=== PATIENT | female | born 1935 | race Caucasian/White ===

== ENCOUNTER → 2016-12-03 | Outpatient (CLI) | payer MEDICARE ==
[2016-12-03 10:51] LABS: Blood Urea Nitrogen 18 mg/dL (7-17); Non-African American GFR(MDRD) 59 (>60 ml/min/1.73 sqM)
--- NOTE | 2016-12-03 11:37 | CT ---
EXAMINATION TYPE: CT abdomen pelvis w con DATE OF EXAM: 12/03/2016 11:19 AM HISTORY: Abdominal and pelvic mass. Anemia. CT DLP: 811.50mGycm Automated Exposure Control for Dose Reduction was Utilized. CONTRAST: CT scan of the abdomen and pelvis is performed with IV Contrast, patient injected with 100 ml mL of V isipaque 320. COMPARISON: None. FINDINGS: LUNG BASES: Minimal left basilar subsegmental atelectasis. LIVER/GB: Solitary hypoattenuated lesion is seen within the right lobe of the liver on image 24 that is fluid attenuated and likely represents a hepatic cyst. This measures 1.0 cm. The gallbladder is un remarkable with no right upper quadrant fat stranding, free fluid, or evidence of gallbladder wall th ickening. PANCREAS: No significant abnormality is seen. SPLEEN: No significant abnormality is seen. ADRENALS: No significant abnormality is seen. KIDNEYS: Nonspecific bilateral perinephric fat stranding is present. A nonobstructive 3 mm left lower pole renal calculus is seen as well as scattered renal lesions that are too small to accurately ailyn acterize bilaterally. Additionally a 3 mm right lower pole nonobstructing calculus is seen and a slig htly hyperdense left upper pole renal lesion measuring 9 mm that is also too small to accurately ailyn acterize. Right parapelvic renal cyst is noted. BOWEL: There is a small hiatal hernia present. Sigmoid diverticula are seen without pericolonic fat s tranding. Rectum is decompressed. UTERUS/ADNEXA: The uterus is atrophic containing a single peripheral calcification versus adjacent ph lebolith. The ovaries are also atrophic with no adnexal masses seen. LYMPH NODES: No greater than 1cm abdominal or pelvic lymph nodes are appreciated. OSSEOUS STRUCTURES: No suspicious abnormality is seen. Degenerative changes are present of the femora l acetabular joints and visualized thoracolumbar and lumbosacral spine. Multilevel degenerative disc disease is evident. Diastasis recti with a small fat filled umbilical hernia is also seen. OTHER: Moderate atheromatous changes are seen of the abdominal aorta and its branches. Abdominal aort a is of normal course and caliber. IMPRESSION: 1. No pelvic mass. Atrophy of the uterus and ovaries, age-related. 2. Sigmoid diverticulosis without current evidence of diverticulitis. 3. Bilateral hypoattenuating renal lesions that are too small to accurately characterize and right pa rapelvic cyst. 4. Nonobstructing 3 mm renal calculi, one within each kidney. 5. Simple hepatic cyst. 6. Small hiatal hernia. 7. Multilevel degenerative disc disease and degenerative changes of the thoracolumbar spine.
== END | disposition home or self-care (01) ==
LOC: RADCTMAIN 09:44
PROVIDERS: ATTEND Surgery Plastic and Reconstructive Surgery
DX: N20.0 Calculus of kidney (principal); K57.30 Diverticulosis of large intestine without perforation or abscess without bleeding; N28.9 Disorder of kidney and ureter, unspecified; N28.1 Cyst of kidney, acquired; K76.89 Other specified diseases of liver; K44.9 Diaphragmatic hernia without obstruction or gangrene; N85.8 Other specified noninflammatory disorders of uterus
CPT/HCPCS: 82565; 84520; 74177; 36415; Q9967

== ENCOUNTER → 2016-12-03 | Day surgery (SDC) | payer MEDICARE ==
[2016-12-01 13:23] VITALS: BMI 29.5
[~2016-12-03] MED LIST: LACTATED RINGERS 1,000 ML IV ONE; LACTATED RINGERS 1,000 ML IV SCH; PROPOFOL 10 MG/ML 20 ML VIAL IV ONE
--- NOTE | 2016-12-03 04:34 | P.GSHP ---
History of Present Illness H&P Date: 12/03/16 CHIEF COMPLAINT: GERD and colon screen HISTORY OF PRESENT ILLNESS: The patient is a 81-year-old male who presents reports gastroesophageal reflux disease and need for colon screen. Upper and lower endoscopy were offered for further evaluation and management. PAST MEDICAL HISTORY: Please see list. PAST SURGICAL HISTORY: Please see list. MEDICATIONS: Please see list. ALLERGIES: Please see list. SOCIAL HISTORY: No illicit drug use FAMILY HISTORY: No reports of Crohn disease or ulcerative colitis. REVIEW OF ORGAN SYSTEMS: CONSTITUTIONAL: No reports of fevers or chills. GI: Denies any blood in stools or constipation. PHYSICAL EXAM: VITAL SIGNS: Stable GENERAL: Well-developed pleasant in no acute distress. HEENT: No scleral icterus. Extraocular movements grossly intact. Moist buccal mucosa. NECK: Supple without lymphadenopathy. CHEST: Unlabored respirations. Equal bilateral excursions. CARDIOVASCULAR: Regular rate and rhythm. Distal 2+ pulses. ABDOMEN: Soft, nondistended. MUSCULOSKELETAL: No clubbing, cyanosis, or edema. ASSESSMENT: 1. Gastroesophageal reflux disease 2. Colon screen. PLAN: 1. Recommend proceeding with an upper and lower endoscopy Past Medical History Past Medical History: Heart Failure, Eye Disorder, GERD/Reflux, Hypertension Additional Past Medical History / Comment(s): hx. intermittent anemia-gets iron infusions, blood transfusion in Sep., now low again, hx. heart murmur, sciatic problems, macular degeneration History of Any Multi-Drug Resistant Organisms: None Reported Past Surgical History: Orthopedic Surgery Additional Past Surgical History / Comment(s): bunionectomy,colonoscopy Past Anesthesia/Blood Transfusion Reactions: No Reported Reaction Smoking Status: Former smoker Past Alcohol Use History: None Reported Additional Past Alcohol Use History / Comment(s): quit smoking 27 yrs. ago, < ppd since teens Past Drug Use History: None Reported - Past Family History Mother Family Medical History: No Reported History Medications and Allergies Home Medications Medication Instructions Recorded Confirmed Type Furosemide [Lasix] 40 mg PO DAILY 12/01/16 12/01/16 History Irbesartan/Hydrochlorothiazide 2 each PO DAILY 12/01/16 12/01/16 History [Avalide 150-12.5 mg Tablet] Multivit with Calcium,Iron,Min 1 each PO DAILY 12/01/16 12/01/16 History [Women's Multivitamin] Vit C/E/Zn/Coppr/Lutein/Zeaxan 1 each PO DAILY 12/01/16 12/01/16 History [Preservision Areds 2 Softgel] Allergies Allergy/AdvReac Type Severity Reaction Status Date / Time Penicillins Allergy Rash/Hives Verified 12/01/16 12:58
[2016-12-03 07:08] VITALS: TEMP 97.1
--- NOTE | 2016-12-03 07:55 | P.PCN ---
Date of Procedure: 12/03/16 Description of Procedure: PREOPERATIVE DIAGNOSIS: Chronic anemia. Gastroesophageal reflux disease. POSTOPERATIVE DIAGNOSIS: Chronic gastritis without stigmata of prior bleed Diaphragmatic hiatal hernia. Gastroesophageal reflux disease. OPERATION: Esophagogastroduodenoscopy with biopsies along antrum. SURGEON: Alexandra Cruz MD ANESTHESIA: MAC. INDICATIONS: The patient is a 81-year-old female who presents with a history of anemia and reflux disease. Benefits and risks of the procedure were described. Informed consent was obtained. DESCRIPTION: The patient was brought into the endoscopy suite and laid in the left lateral decubitus position. An Olympus gastroscope was passed along the posterior oropharynx down to the distal esophagus where the squamocolumnar junction was encountered at 37 cm from the incisors. The stomach was entered and minimal bile reflux was found. Additional findings are listed below. Biopsies with cold forceps were obtained of the antrum. The first through third portion of the duodenum was examined and unremarkable. Retroflexion of the scope confirmed Hill grade 4 lower esophageal valve. The squamocolumnar junction demostrated LA grade B erosive esophagitis. The stomach was desufflated. The patient tolerated the procedure well. FINDINGS: Squamocolumnar junction 37 cm from the incisors. Diaphragmatic hiatus 40 cm from the incisors. Hiatal hernia, 3 cm. Hill grade 4 lower esophageal valve. LA grade B erosive esophagitis. No active duodenitis. Active gastritis. RECOMMENDATIONS: Further recommendations pending results of pathology report. Upper endoscopy as needed.
--- NOTE | 2016-12-03 08:30 | P.PCN ---
Date of Procedure: 12/03/16 Description of Procedure: PREOPERATIVE DIAGNOSIS: Colonoscopy screening. History of anemia. POSTOPERATIVE DIAGNOSIS: Colonoscopy screening. History of anemia. Diverticulosis, scattered, moderate to severe. Multiple angiodysplasia along cecum with recent stigmata of bleed. Grade 4 prolapsed internal and external hemorrhoids with recent inflammation. OPERATION: Colonoscopy to the ileocecal valve and appendiceal orifice. Colonoscopy with ablation using argon beam along cecum, multiple angiodysplasias. SURGEON: Alexandra Cruz MD. ANESTHESIA: MAC. INDICATIONS: The patient is a 81-year-old female who presents for colonoscopy screening and history of anemia. Benefits and risks were described and informed consent was obtained. DESCRIPTION OF PROCEDURE: The patient had undergone Gatorade, MiraLAX and Dulcolax prep. She had been brought into the operating room and laid in the left lateral decubitus position. After adequate intravenous sedation, the rectum was examined with 2% lidocaine jelly. Severe prolapsed grade 4 internal and external hemorrhoids were encountered. The rectal tone was within normal limits. No lesions were palpated in the rectal vault. An Olympus colonoscope was advanced until the ileocecal valve and appendiceal orifice were clearly viewed. The prep was excellent with clear visualization of the mucosal folds. The scope was removed with visualization of each mucosal fold. Multiple large scattered diverticulosis was encountered without diverticulitis. No colonic polyps were found. No evidence of focal colitis was found. Along the cecum, 3 separate islands of angiodysplasias were identified or recent bleed and ablated using argon beam. Retroflexion of the scope demonstrated grade 4 internal prolaspsed hemorrhoids with inflammation. The colon was desufflated. The patient had tolerated the procedure well. Withdrawal time was over 6 minutes. FINDINGS: Internal hemorrhoids, grade 4. External prolapsed hemorrhoids. Angiodysplasias recent bleeding along cecum, 3 islands ablated. Moderate to severe diverticulosis without diverticulitis. No adenomatous polyps. No focal colitis. RECOMMENDATIONS: Lower endoscopy as needed. Plan - Discharge Summary Discharge Medication List Furosemide [Lasix] 40 mg PO DAILY 12/01/16 [History] Irbesartan/Hydrochlorothiazide [Avalide 150-12.5 mg Tablet] 2 each PO DAILY 10/15 [History] Multivit with Calcium,Iron,Min [Women's Multivitamin] 1 each PO DAILY 12/01/16 [ History] Vit C/E/Zn/Coppr/Lutein/Zeaxan [Preservision Areds 2 Softgel] 1 each PO DAILY [History]
[2016-12-03 08:56] VITALS: BP 165/71; PULSE 65; RESP 20
== END | disposition home or self-care (01) ==
LOC: ORWHC2ENDO 06:50
PROVIDERS: ATTEND Surgery Plastic and Reconstructive Surgery
DX: K29.50 Unspecified chronic gastritis without bleeding (principal); B96.81 Helicobacter pylori [H. pylori] as the cause of diseases classified elsewhere; K22.10 Ulcer of esophagus without bleeding; K44.9 Diaphragmatic hernia without obstruction or gangrene; D64.9 Anemia, unspecified; K57.30 Diverticulosis of large intestine without perforation or abscess without bleeding; K55.20 Angiodysplasia of colon without hemorrhage; K64.3 Fourth degree hemorrhoids; I11.0 Hypertensive heart disease with heart failure; I50.9 Heart failure, unspecified; Z87.891 Personal history of nicotine dependence; K21.9 Gastro-esophageal reflux disease without esophagitis; Z79.899 Other long term (current) drug therapy; Z88.0 Allergy status to penicillin
CPT/HCPCS: 88305; 88342; 43239; 45388; J2704; 36415; 74177; 82565; 84520